=== PATIENT | male | born 1945 | race Caucasian/White ===

== ENCOUNTER 2022-05-30 03:08 | Inpatient (IN) | payer MEDICARE, BC ==
[2022-05-30] VITALS (7 sets, daily range): BP systolic 90–104; BP diastolic 35–46
[~2022-05-30] VITALS: Ht 177.8 cm; Wt 81.6 kg
--- NOTE | 2022-05-30 03:16 | NUR ---
Dr. Wilder at bedside. MSE in progress.
[2022-05-30] MEDS ORDERED: ASPI81TA31 PO (03:37)
[2022-05-30] MEDS ORDERED: ATEN25TA PO (03:37)
[2022-05-30] MEDS ORDERED: ALLO300T2 PO (03:37)
[2022-05-30] MEDS ORDERED: EMPA25TA PO (03:37)
[2022-05-30] MEDS ORDERED: IV NORMAL SALINE 1000 ML BAG IV ONE (03:45)
[2022-05-30] MEDS ORDERED: PANTOPRAZOLE SODIUM 40 MG VIAL IV ONE (03:45)
[2022-05-30] MEDS ORDERED: PANTOPRAZOLE SODIUM 40 MG VIAL ONE (04:08)
[2022-05-30 04:09] LABS: CARBON DIOXIDE 24 mmol/L (21-32); CHLORIDE 106 mmol/L (98-107); CREATININE 0.8 mg/dL (0.6-1.3); GLUCOSE 138 mg/dL (74-106); POTASSIUM 3.8 mmol/L (3.5-5.1); UREA NITROGEN, BLOOD 45 mg/dL (7-18)
[2022-05-30 04:17] LABS: ALANINE AMINOTRANSFERASE 16 U/L (16-63); ALKALINE PHOSPHATASE 73 U/L (50-136); ASPARTATE AMINOTRANSFERASE 8 U/L (15-37); BILIRUBIN,DIRECT < 0.1 mg/dL (0.0-0.2); BILIRUBIN,TOTAL 0.1 mg/dL (0.2-1.0); TOTAL PROTEIN, SERUM 5.4 g/dL (6.4-8.2)
[2022-05-30 04:31] LABS: MEAN CORPUSCULAR HEMOGLOBIN 31.2 uug (23.8-33.4); MEAN CORPUSCULAR VOLUME 96.7 fL (73.0-96.2); PLATELET COUNT (AUTO) 227 K/uL (152-348)
[2022-05-30 04:33] LABS: HEMATOCRIT 20.3 % (36.7-47.1)
--- NOTE | 2022-05-30 04:35 | NUR ---
Called [facility] for panel call, JUANY Ashton material control supervisor.
[2022-05-30] MEDS ORDERED: REMEDY ESSENTIAL ZINC PASTE 113 GM TP PRN (04:45)
[2022-05-30] MEDS ORDERED: ACETAMINOPHEN 325 MG TABLET PO PRN (04:45)
[2022-05-30] MEDS ORDERED: ONDANSETRON 4 MG/2 ML VIAL IV PRN (04:45)
[2022-05-30] MEDS ORDERED: IV NS 1000 ML 1,000 ML IV PRN (04:45)
[2022-05-30] MEDS ORDERED: MAGNESIUM SULFATE/D5W 200 ML ONE (04:46)
[2022-05-30] MEDS: MAGNESIUM SULFATE/D5W 100 ML IV SCH ×2 (04:51→05:45)
--- NOTE | 2022-05-30 05:30 | NUR ---
Called to give report. Instructed to call back at 0615 to give report, nurse is not avaliable at this time.
[2022-05-30] MEDS ORDERED: LIDOCAINE 2% (GLYDO= UROJET) 10 ML JELLY MM ONE (05:43)
--- NOTE | 2022-05-30 05:45 | NUR ---
Inserted NG tube, pt tolerated procedure well, confirmed placement via auscultation with 2 RN confirmation.
--- NOTE | 2022-05-30 06:00 | NUR ---
Irrigated NG tube with sterile water, no blood aspirated, made aware, Dr. Wilder ordered to DC NG tube.
--- NOTE | 2022-05-30 06:15 | NUR ---
Report given to ELIS Trujillo.
--- NOTE | 2022-05-30 06:30 | NUR ---
Pt. admitted to TELE rm 304, under care of Poli, RATE CLERK PASSENGER [employer] List completed Cassandra aware of patients arrival to unit.
--- NOTE | 2022-05-30 06:35 | NUR ---
PATIENT RECEIVED FROM ER DX: GI BLEED .no active bleeding noted .patient aaox4/maex4 ambulated form the gurney to the room . patient went to the bathroom steady of gait and he voided .belonging inventory done and patient oriented with room and set ,oriented with call mullins system . connected to heart monitor SR 66 TO 79.TOOK V/S AND SEE VITAL SHEET.
--- NOTE | 2022-05-30 07:00 | NUR ---
RECEIVED REPORT FROM SUPERVISOR [employer] A 76 YO MALE FROM [facility] HOME VIA ER WITH ADM DX OF GI BLEEDING AWAKE ALERT AND ORIENTED X3, ABLE TO MAKE NEEDS KNOWN AND AWARE OF DX. DENIES PAIN OR SOB SR/SB ON MONITOR. WILL NOTIFIE HOSPITALIST OF ADMISSION
[2022-05-30] MEDS ORDERED: PANTOPRAZOLE SODIUM 40 MG VIAL IV SCH (09:00)
--- NOTE | 2022-05-30 09:22 | NUR ---
BLOOD TRANSFUSION STARTED AT BEDSIDE, CLOSELY MONITORED.
--- NOTE | 2022-05-30 09:40 | NUR ---
NO SS OF BLOOD TRANSFUSION REACTION NOTED BP 90/36 HOSPITALIST MADE AWARE
[2022-05-30 10:10] LABS: LYMPHOCYTES % (MANUAL) 30 % (20-40); METAMYELOCYTES % 1 % (0-1); MONOCYTES % (MANUAL) 3 % (2-10); NEUTROPHILS % (MANUAL) 66 % (42-75)
--- NOTE | 2022-05-30 11:14 | NUR ---
PER HOSPITALIST CANCEL 2ND BAG OF MAGNESIUM (MG LEVEL 2.2)
--- NOTE | 2022-05-30 12:36 | NUR ---
blood transfusion completed without reaction.
--- NOTE | 2022-05-30 13:50 | NUR ---
DISCHARGED HOME AMA PICKED UP BY . PER PATIENT HE WILL FOLLOW-UP GI APPOINTMENT IN AM
[2022-05-31] MEDS ORDERED: ATENOLOL 25 MG TABLET PO SCH (09:00)
[2022-05-31] MEDS ORDERED: ALLOPURINOL 300 MG TABLET PO SCH (09:00)
[2022-05-31] MEDS ORDERED: EMPAGLIFLOZIN 25 MG TABLET PO SCH (09:00)
== END 2022-05-30 13:55 | disposition left against medical advice (07) | DRG 378 ==
LOC: ER 03:08 → TELE3 05:55
PROVIDERS: ADMIT Nurse Practitioner Acute Care; ATTEND Nurse Practitioner Acute Care
PROC: 30233N1 Transfusion of Nonautologous Red Blood Cells into Peripheral Vein, Percutaneous Approach (ICD-10-PCS; principal; 2022-05-30)
DX: K92.2 Gastrointestinal hemorrhage, unspecified (principal); D62 Acute posthemorrhagic anemia; E44.0 Moderate protein-calorie malnutrition; E11.9 Type 2 diabetes mellitus without complications; E88.09 Other disorders of plasma-protein metabolism, not elsewhere classified; Z79.82 Long term (current) use of aspirin; Z95.2 Presence of prosthetic heart valve; D72.829 Elevated white blood cell count, unspecified; R55 Syncope and collapse; Z68.25 Body mass index [BMI] 25.0-25.9, adult; Z85.828 Personal history of other malignant neoplasm of skin; Z20.822 Contact with and (suspected) exposure to COVID-19
CPT/HCPCS: 36415; 70030-TC; 71045; 83735; 84484; 85018; 85025; 85730; 86850; 86900; 86901; 86920; 93005; A4663; C9113; G0378; J3475; J7040; P9016